=== PATIENT | female | born 1955 | race Caucasian/White ===

== ENCOUNTER 2017-06-13 07:04 | Day surgery (SDC) | payer BC ==
[~2017-06-13 07:04] MED LIST: Lactated Ringers 1,000 ML IV SCH; Lidocaine 1%/Sod Bicarbonate in NS 8.4% 1 ML Syringe IV PRN; Sodium Chloride 0.9% 10 ML Syringe FLUSH PRN
--- NOTE | 2017-06-13 07:35 | PCM.PREANE ---
Preanesthetic Assessment - Anesthesia/Transfusion/Family Hx Anesthesia History: Prior Anesthesia Without Reaction Family History of Anesthesia Reaction: No Transfusion History: Prior Transfusion Without Reaction - Review of Systems General: No Symptoms Pulmonary: Cough Cardiovascular: No Symptoms Gastrointestinal: Diarrhea Neurological: Numbness (feet) Other: Reports: Diabetes (205 this am) - Physical Assessment NPO Status Date: 06/12/17 NPO Status Time: 00:00 Pulse: 101 O2 Sat by Pulse Oximetry: 94 Respiratory Rate: 16 Blood Pressure: 132/87 Temperature: 36.9 C Height: 1.37 m Weight: 81 kg ASA Class: 2 Mental Status: Alert & Oriented x3 Dentition: Reports: Implants (front bottom) Thyro-Mental Finger Breadths: 3 Mouth Opening Finger Breadths: 3 ROM/Head Extension: Full Lungs: Clear to Auscultation, Normal Respiratory Effort, Decreased Breath Sounds Cardiovascular: Regular Rate, Regular Rhythm, No Murmurs - Allergies Allergies/Adverse Reactions: Allergies Allergy/AdvReac Type Severity Reaction Status Date / Time celecoxib [From Celebrex] Allergy Vomiting Verified 06/12/17 12:05 clindamycin Allergy Rash Verified 06/12/17 12:05 Penicillins Allergy Cannot Verified 06/12/17 12:05 Remember - Blood Blood Available: No Product(s) Available: None - Anesthesia Plan Pre-Op Medication Ordered: None - Acknowledgements Anesthesia Type Planned: MAC Pt an Appropriate Candidate for the Planned Anesthesia: Yes Alternatives and Risks of Anesthesia Discussed w Pt/Guardian: Yes Pt/Guardian Understands and Agrees with Anesthesia Plan: Yes PreAnesthesia Questionnaire HEENT History: Reports: Impaired Vision Cardiovascular History: Reports: Blood Clots/VTE/DVT, High Cholesterol, Hypertension Respiratory History: Reports: None Gastrointestinal History: Reports: Chronic Constipation, Chronic Diarrhea Genitourinary History: Reports: Other (See Below) Other Genitourinary History: pelvic organ prolapse FIG WASHER History: Reports: None Musculoskeletal History: Reports: None Neurological History: Reports: CVA, Other (See Below) Other Neuro History: peripheral nerve disease Psychiatric History: Reports: None Endocrine/Metabolic History: Reports: Diabetes, Type II Hematologic History: Reports: None Immunologic History: Reports: None Oncologic (Cancer) History: Reports: None Dermatologic History: Reports: None - Past Surgical History Head Surgeries/Procedures: Reports: None HEENT Surgical History: Reports: Adenoidectomy, Oral Surgery, Tonsillectomy Cardiovascular Surgical History: Reports: None Respiratory Surgical History: Reports: None GI Surgical History: Reports: None Female Surgical History: Reports: Section, Hysterectomy Male Surgical History: Reports: None Endocrine Surgical History: Reports: None Neurological Surgical History: Reports: None Musculoskeletal Surgical History: Reports: None Oncologic Surgical History: Reports: None Dermatological Surgical History: Reports: None - SUBSTANCE USE Smoking Status *Q: Current Every Day Smoker Tobacco Use Within Last Twelve Months: Cigarettes Second Hand Smoke Exposure: Yes Days Per Week of Alcohol Use: 0 Number of Drinks Per Day: 0 Total Drinks Per Week: 0 Recreational Drug Use History: No - HOME MEDS Home Medications: Home Meds Aspirin [Ecotrin] 81 mg PO DAILY 06/12/17 [History] Furosemide [Furosemide] 40 mg PO BID 06/12/17 [History] Glimepiride [Amaryl] 4 mg PO DAILY 06/12/17 [History] Lisinopril [Lisinopril] 30 mg PO DAILY 06/12/17 [History] Rosuvastatin Calcium [Rosuvastatin Calcium] 10 mg PO DAILY 06/12/17 [History] sitaGLIPtin Phos/Metformin HCl [Janumet 50-1,000 MG] 1 tab PO BID 06/12/17 [ History] - CURRENT (IN HOUSE) MEDS Current Meds: Current Medications Lactated Ringer's (Ringers, Lactated) 1,000 mls @ 125 mls/hr IV ASDIRECTED JEFF Stop: 06/13/17 18:00 Lidocaine/Sodium Bicarbonate (Buffered Lidocaine 1% In Ns 8.4%) 0.25 ml IV ONETIME PRN PRN Reason: Prior to IV Start Stop: 06/13/17 18:00 Sodium Chloride (Saline Flush) 10 ml FLUSH ASDIRECTED PRN PRN Reason: Keep Vein Open Stop: 06/13/17 18:00
[2017-06-13] MEDS ORDERED: Propofol 200 MG/20 ML SDV ONE (07:43)
[2017-06-13] MEDS ORDERED: Midazolam 1 MG/ML 2 ML SDV ONE (07:43)
[2017-06-13] MEDS ORDERED: fentaNYL 100 MCG/2 ML SDV ONE (07:43)
[2017-06-13] MEDS ORDERED: Lidocaine 1% 4 ML ONE (07:44)
--- NOTE | 2017-06-13 08:28 | PCM.OPNOTE ---
- General Post-Op/Procedure Note Date of Surgery/Procedure: 06/13/17 Operative Procedure(s): colonosocopy cancelled poor prep Pre Op Diagnosis: chronic diarrhea change in bowel habits Post-Op Diagnosis: Same Anesthesia Technique: MAC Primary Surgeon: Levon Morales EBL in mLs: 0 Complications: None Condition: Good
== END 2017-06-13 09:07 | disposition home or self-care (01) ==
LOC: JD.SDS 07:04
PROVIDERS: ATTEND Surgery
DX: Z53.8 Procedure and treatment not carried out for other reasons (principal); I10 Essential (primary) hypertension; E11.65 Type 2 diabetes mellitus with hyperglycemia; E78.00 Pure hypercholesterolemia, unspecified; Z88.0 Allergy status to penicillin; Z88.1 Allergy status to other antibiotic agents; F17.210 Nicotine dependence, cigarettes, uncomplicated; Z90.710 Acquired absence of both cervix and uterus; Z79.82 Long term (current) use of aspirin; Z79.84 Long term (current) use of oral hypoglycemic drugs; Z79.899 Other long term (current) drug therapy
CPT/HCPCS: 45378; J2250; J3010; J7120; 00810; J2704

== ENCOUNTER → 2017-06-14 | Day surgery (SDC) | payer BC ==
[~2017-06-14] MED LIST changes: +Lactated Ringers 1,000 ML ONE; +Lidocaine 1% 4 ML ONE; +Propofol 200 MG/20 ML SDV ONE; +fentaNYL 100 MCG/2 ML SDV ONE
--- NOTE | 2017-06-14 09:37 | PCM.PREANE ---
Preanesthetic Assessment - Anesthesia/Transfusion/Family Hx Anesthesia History: Prior Anesthesia Without Reaction Family History of Anesthesia Reaction: No Transfusion History: Prior Transfusion Without Reaction Intubation History: Unknown - Review of Systems General: No Symptoms Pulmonary: Cough Cardiovascular: No Symptoms Gastrointestinal: Constipation (Diarrhea) Neurological: Other (Numbness in feet and hands, Dysphagia) Other: Reports: Diabetes - Physical Assessment NPO Status Date: 06/13/17 NPO Status Time: 22:30 Pulse: 102 O2 Sat by Pulse Oximetry: 93 Respiratory Rate: 16 Vital Signs: Last Vital Signs Temp 36.4 C 06/14/17 08:45 Pulse 102 H 06/14/17 08:45 Resp 16 06/14/17 08:45 BP 151/52 H 06/14/17 08:45 Pulse Ox 93 L 06/14/17 08:45 Weight: 81 kg ASA Class: 3 Mental Status: Alert & Oriented x3 Airway Class: Mallampati = 1 Dentition: Reports: Missing Tooth/Teeth (Bottom teeth very loose. Poor Dentition. ) Thyro-Mental Finger Breadths: 3 Mouth Opening Finger Breadths: 3 ROM/Head Extension: Full Lungs: Clear to Auscultation, Normal Respiratory Effort Cardiovascular: Regular Rate, Regular Rhythm - Allergies Allergies/Adverse Reactions: Allergies Allergy/AdvReac Type Severity Reaction Status Date / Time celecoxib [From Celebrex] Allergy Vomiting Verified 06/13/17 15:21 clindamycin Allergy Rash Verified 06/13/17 15:21 Penicillins Allergy Cannot Verified 06/13/17 15:21 Remember - Acknowledgements Anesthesia Type Planned: MAC Pt an Appropriate Candidate for the Planned Anesthesia: Yes Alternatives and Risks of Anesthesia Discussed w Pt/Guardian: Yes Pt/Guardian Understands and Agrees with Anesthesia Plan: Yes PreAnesthesia Questionnaire HEENT History: Reports: Impaired Vision Cardiovascular History: Reports: Blood Clots/VTE/DVT, High Cholesterol, Hypertension Respiratory History: Reports: None Gastrointestinal History: Reports: Chronic Constipation, Chronic Diarrhea Genitourinary History: Reports: Other (See Below) Other Genitourinary History: pelvic organ prolapse YARN INSPECTOR History: Reports: None Musculoskeletal History: Reports: None Neurological History: Reports: CVA, Other (See Below) Other Neuro History: peripheral nerve disease Psychiatric History: Reports: None Endocrine/Metabolic History: Reports: Diabetes, Type II Hematologic History: Reports: None Immunologic History: Reports: None Oncologic (Cancer) History: Reports: None Dermatologic History: Reports: None - Past Surgical History Head Surgeries/Procedures: Reports: None HEENT Surgical History: Reports: Adenoidectomy, Oral Surgery, Tonsillectomy Cardiovascular Surgical History: Reports: None Respiratory Surgical History: Reports: None GI Surgical History: Reports: None Female Surgical History: Reports: Section, Hysterectomy Male Surgical History: Reports: None Endocrine Surgical History: Reports: None Neurological Surgical History: Reports: None Musculoskeletal Surgical History: Reports: None Oncologic Surgical History: Reports: None Dermatological Surgical History: Reports: None - SUBSTANCE USE Smoking Status *Q: Current Every Day Smoker Tobacco Use Within Last Twelve Months: Cigarettes Second Hand Smoke Exposure: Yes Days Per Week of Alcohol Use: 0 Number of Drinks Per Day: 0 Total Drinks Per Week: 0 Recreational Drug Use History: No - HOME MEDS Home Medications: Home Meds Aspirin [Ecotrin] 81 mg PO DAILY 06/12/17 [History] Furosemide [Furosemide] 40 mg PO BID 06/12/17 [History] Glimepiride [Amaryl] 4 mg PO DAILY 06/12/17 [History] Lisinopril [Lisinopril] 30 mg PO DAILY 06/12/17 [History] Rosuvastatin Calcium [Rosuvastatin Calcium] 10 mg PO DAILY 06/12/17 [History] sitaGLIPtin Phos/Metformin HCl [Janumet 50-1,000 MG] 1 tab PO BID 06/12/17 [ History] - CURRENT (IN HOUSE) MEDS Current Meds: Current Medications Lactated Ringer's (Ringers, Lactated) 1,000 mls @ 125 mls/hr IV ASDIRECTED JEFF Stop: 06/14/17 23:00 Lidocaine/Sodium Bicarbonate (Buffered Lidocaine 1% In Ns 8.4%) 0.25 ml IV ONETIME PRN PRN Reason: Prior to IV Start Stop: 06/14/17 18:00 Sodium Chloride (Saline Flush) 10 ml FLUSH ASDIRECTED PRN PRN Reason: Keep Vein Open Stop: 06/14/17 18:00
--- NOTE | 2017-06-14 12:30 | PCM.OPNOTE ---
- General Post-Op/Procedure Note Date of Surgery/Procedure: 06/14/17 Operative Procedure(s): colonosocopy to cecum collection of stool for analysis and removal of rectal diminutive polyp by cold biopsy forceps Pre Op Diagnosis: chronic diarrhea Post-Op Diagnosis: Same Anesthesia Technique: MAC Primary Surgeon: Levon Morales EBL in mLs: 0 Complications: None Condition: Good
--- NOTE | 2017-06-14 14:15 | PCM48HPAN ---
Post Anesthesia Note - EVALUATION WITHIN 48HRS OF ANESTHETIC Vital Signs in Normal Range: Yes Patient Participated in Evaluation: Yes Respiratory Function Stable: Yes Airway Patent: Yes Cardiovascular Function Stable: Yes Hydration Status Stable: Yes Pain Control Satisfactory: Yes Nausea and Vomiting Control Satisfactory: Yes Mental Status Recovered: Yes
--- NOTE | 2017-06-16 07:22 | OR ---
DATE OF OPERATION: 06/13/2017 SURGEON: Levon Morales MD PREOPERATIVE DIAGNOSIS: Chronic diarrhea. POSTOPERATIVE DIAGNOSIS: Chronic diarrhea. OPERATION PERFORMED: Colonoscopy to cecum with collection of stool for analysis and removal of a diminutive rectal polyp by cold biopsy forceps. ANESTHESIA: Procedure done under IV sedation. FINDINGS: Some edema in the wall of the descending sigmoid colon. Multiple small diminutive polyps in the rectum consistent with hyperplastic polyp and a biopsy of one was done. There was a large sigmoid loop. RECOMMENDATION: Repeat colonoscopy in 10 years or as per pathology dictates. DESCRIPTION OF PROCEDURE: The patient was taken to the endoscopy room, placed in supine position, given IV sedation, and placed in left lateral position. Perianal area was inspected and was normal. Rectal exam showed good sphincter tone. A video Olympus colonoscope was then introduced into the rectum and threaded up without problem to the cecum, where the appendicular orifice was seen. Prep was excellent. [place] cleansing score grade A. The scope was slowly withdrawn showing the cecum, ascending colon, transverse colon, descending colon, sigmoid colon, and rectum. A small diminutive stool was collected for analysis. The scope was withdrawn. A small diminutive polyp, which was noted in the rectum, was removed by cold biopsy forceps. It was noted that there was a number of these consistent with hyperplastic polyp. The patient tolerated the procedure and was sent to recovery room in a stable condition. She will be followed up in the clinic. ESTIMATED BLOOD LOSS: MMODAL /[id number]
== END | disposition home or self-care (01) ==
LOC: JD.SDS 09:00
PROVIDERS: ATTEND Surgery
DX: K62.1 Rectal polyp (principal); I10 Essential (primary) hypertension; E78.00 Pure hypercholesterolemia, unspecified; E11.65 Type 2 diabetes mellitus with hyperglycemia; Z90.710 Acquired absence of both cervix and uterus; Z88.0 Allergy status to penicillin; Z88.1 Allergy status to other antibiotic agents; Z79.82 Long term (current) use of aspirin; Z79.899 Other long term (current) drug therapy; F17.210 Nicotine dependence, cigarettes, uncomplicated
CPT/HCPCS: 45380; 87046; 87328; 87329; 87427; 87493; 89055; J3010; J7120; 00810; J2704